=== PATIENT | male | born 1990 | race Caucasian/White ===

== ENCOUNTER 2019-08-13 15:03 | Emergency (ER) | payer SELFPAY ==
[2019-08-13] MEDS: Acetaminophen/HYDROcodone 325-10 MG Tab PO ONE (15:15)
[2019-08-13] MEDS: Ondansetron 4 MG Tab.DIS PO ONE (15:15)
--- NOTE | 2019-08-13 17:40 | EDM.PDOC ---
ED HPI GENERAL MEDICAL PROBLEM - General Chief Complaint: Back Pain or Injury Time Seen by Provider: 08/13/19 15:24 Source of Information: Reports: Patient History Limitations: Reports: No Limitations - History of Present Illness INITIAL COMMENTS - FREE TEXT/NARRATIVE: This is a 28yo M seen in the clinic for neck pain. He was found to have unstable C6-7 fractures and needs to be transferred to [facility]. Onset: Sudden Onset Date: 08/12/19 Onset Time: 20:00 Duration: Constant Location: Reports: Neck Quality: Reports: Ache Severity: Severe Improves with: Reports: None Worsens with: Reports: Movement (unable to move much - counseled not to move.) Associated Symptoms: Reports: Other (tingling and numbness of distal right index finger) Neck Pain Score (Numeric/FACES): 8 - Related Data Allergies Allergy/AdvReac Type Severity Reaction Status Date / Time No Known Allergies Allergy Verified 08/13/19 15:30 Home Meds: Home Meds NK [No Known Home Meds] 08/13/19 [History] ED ROS GENERAL - Review of Systems Review Of Systems: ROS reveals no pertinent complaints other than HPI. 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 As Tested, Oriented x 3 Course - Vital Signs Last Recorded V/S: Last Vital Signs Temp 37.2 C 08/13/19 15:24 Pulse 97 08/13/19 15:24 Resp 20 08/13/19 15:24 BP 153/100 H 08/13/19 15:24 Pulse Ox 100 08/13/19 15:24 - Orders/Labs/Meds Meds: Medications Discontinued Medications Generic Name Dose Route Start Last Admin Trade Name Freq PRN Reason Stop Dose Admin Hydrocodone Bitart/Acetaminophen 1 tab 08/13/19 15:15 08/13/19 15:15 [place] 325-10 Mg PO 08/13/19 15:16 1 tab ONETIME ONE Administration Ondansetron HCl 4 mg 08/13/19 16:15 08/13/19 15:15 Zofran Odt PO 08/13/19 16:16 4 mg ONETIME ONE Administration Departure - Departure Time of Disposition: 16:30 Disposition: DC/Tfer to Acute Hospital 02 Condition: Serious, Critical Clinical Impression: Closed C6 fracture Qualifiers: Encounter type: initial encounter Fracture morphology: unspecified fracture morphology Fracture alignment: nondisplaced Qualified Code(s): S12.501A - Unspecified nondisplaced fracture of sixth cervical vertebra, initial encounter for closed fracture Closed C7 fracture Qualifiers: Encounter type: initial encounter Fracture morphology: unspecified fracture morphology Fracture alignment: displaced Qualified Code(s): S12.600A - Unspecified displaced fracture of seventh cervical vertebra, initial encounter for closed fracture - Discharge Information Referrals: PCP,None [Primary Care Provider] - Forms: ED Department Discharge - Problem List & Annotations (1) Closed C6 fracture SNOMED Code(s): 841728619 Code(s): S12.500A - UNSP DISP FX OF SIXTH CERVICAL VERTEBRA, INIT FOR CLOS FX Status: Acute Priority: High Qualifiers: Encounter type: initial encounter Fracture morphology: unspecified fracture morphology Fracture alignment: nondisplaced Qualified Code(s): S12.501A - Unspecified nondisplaced fracture of sixth cervical vertebra, initial encounter for closed fracture (2) Closed C7 fracture SNOMED Code(s): 371803968 Code(s): S12.600A - UNSP DISP FX OF SEVENTH CERVICAL VERTEBRA, INIT FOR CLOS FX Status: Acute Priority: High Qualifiers: Encounter type: initial encounter Fracture morphology: unspecified fracture morphology Fracture alignment: displaced Qualified Code(s): S12.600A - Unspecified displaced fracture of seventh cervical vertebra, initial encounter for closed fracture - Problem List Review Problem List Initiated/Reviewed/Updated: Yes - Assessment/Plan Plan: Patient counseled on injuries and the need to f/u with Neurosurgery. Patient to be transferred to [facility] as [facility] unable to care for this patient per consult. Patient transferred by BLS in firm neck collar. Counseled on immobilization at all times and severity of fractures. Patient understands risks. Patient given hydrocodone for pain and zofran for nausea. Patient transferred in Neurovascular stable condition and ambulatory. Mild tingling and numbness of right index finger.
== END 2019-08-13 16:05 ==
LOC: LB.ED 15:03
DX: S12.501A Unspecified nondisplaced fracture of sixth cervical vertebra, initial encounter for closed fracture (principal); S12.600A Unspecified displaced fracture of seventh cervical vertebra, initial encounter for closed fracture; V20.4XXA Motorcycle driver injured in collision with pedestrian or animal in traffic accident, initial encounter; Y92.410 Unspecified street and highway as the place of occurrence of the external cause
CPT/HCPCS: 99284; A0425; A0429; A9270-GY

== ENCOUNTER 2020-07-24 08:56 | Emergency (ER) | payer MEDICAID ==
[2020-07-24] MEDS ORDERED: Morphine 10 MG/ML Syringe IM ONE (09:22)
[2020-07-24] MEDS: Morphine 4 MG/ML VIAL ONE ×2 (09:30)
--- NOTE | 2020-07-24 10:57 | EDM.PDOC ---
ED HPI GENERAL MEDICAL PROBLEM - General Chief Complaint: Lower Extremity Injury/Pain Stated Complaint: POSSIBLE FRACTURE LEFT LEG Time Seen by Provider: 07/24/20 09:15 Source of Information: Reports: Patient History Limitations: Reports: No Limitations - History of Present Illness INITIAL COMMENTS - FREE TEXT/NARRATIVE: Patient is a 29 y/o male who presents for left lateral hartman pain after falling 9 feet yesterday off of his garage. He states he slipped off of his ladder onto his left side. Patient states he hit his head and had a nose bleed afterwards, but denies any loss of consciousness. No headache, no vision changes, no dizziness, no numbness/tingling. Patient is unable to ambulate or bear weight on left lower extremity without pain. Left Lower Leg Pain Score (Numeric/FACES): 9 - Related Data Allergies Allergy/AdvReac Type Severity Reaction Status Date / Time No Known Allergies Allergy Verified 07/24/20 09:03 Home Meds: Home Meds NK [No Known Home Meds] 08/13/19 [History] Past Medical History - Past Surgical History Male Surgical History: Reports: None Review of Systems - Review of Systems Review Of Systems: See Below Constitutional: Reports: No Symptoms Eyes: Reports: No Symptoms Ears: Reports: No Symptoms Nose: Reports: No Symptoms Mouth/Throat: Reports: No Symptoms Respiratory: Reports: No Symptoms Cardiovascular: Reports: No Symptoms GI/Abdominal: Reports: No Symptoms Genitourinary: Reports: No Symptoms Musculoskeletal: Reports: Leg Pain Skin: Reports: No Symptoms Neurological: Reports: No Symptoms ED EXAM, GENERAL - Physical Exam Exam: See Below Exam Limited By: No Limitations General Appearance: Alert, No Apparent Distress Ears: Normal External Exam, Normal Canal, Normal TMs Nose: Normal Inspection, Normal Mucosa, No Blood Head: Atraumatic, Normocephalic Neck: Normal Inspection, Supple, Non-Tender, Full Range of Motion Respiratory/Chest: No Respiratory Distress Cardiovascular: Normal Peripheral Pulses, No Edema Extremities: Normal Inspection, Normal Range of Motion, No Pedal Edema, Normal Capillary Refill, Leg Pain, Other (left lateral hartman tenderness; no bruising; no swelling; no deformity) Neurological: Alert, Oriented, CN II-XII Intact, Normal Cognition, No Motor/Sensory Deficits Skin Exam: Warm, Dry, Intact, Normal Color, No Rash Course - Vital Signs Text/Narrative:: Patient received morphine 4 mg IM and imaging. All imaging unremarkable except hair-line fracture to left mid fibula. Boot and crutches given to patient. toradol 60 mg IM and prescription for percocet give. Last Recorded V/S: Last Vital Signs Temp 36.5 C 07/24/20 09:55 Pulse 77 07/24/20 09:55 Resp 20 07/24/20 09:55 BP 162/86 H 07/24/20 09:55 Pulse Ox 99 07/24/20 09:55 - Orders/Labs/Meds Orders: Active Orders 24 hr Category Date Time Status Cervical Spine wo Cont [CT] Stat Exams 07/24/20 09:34 Taken Head wo Cont [CT] Stat Exams 07/24/20 09:33 Ordered Pelvis 1V or 2V [CR] Stat Exams 07/24/20 09:34 Ordered Tibia Fibula Lt [CR] Stat Exams 07/24/20 09:35 Taken Medication Orders Ketorolac Tromethamine (Toradol) 60 mg IM ONETIME ONE Stop: 07/24/20 11:21 Meds: Medications Generic Name Dose Route Start Last Admin Trade Name Freq PRN Reason Stop Dose Admin Ketorolac Tromethamine 60 mg 07/24/20 11:20 Toradol IM 07/24/20 11:21 ONETIME ONE Discontinued Medications Generic Name Dose Route Start Last Admin Trade Name Freq PRN Reason Stop Dose Admin Morphine Sulfate 4 mg 07/24/20 09:22 07/24/20 09:32 Morphine IM 07/24/20 09:23 Not Given ONETIME ONE Morphine Sulfate Confirm 07/24/20 09:34 07/24/20 09:30 Morphine Administered 07/24/20 09:35 4 mg Dose Administration 4 mg .ROUTE .STK-MED ONE Departure - Departure Time of Disposition: 11:24 Disposition: Home, Self-Care 01 Condition: Good Clinical Impression: Fracture, fibula closed, shaft Qualifiers: Encounter type: initial encounter Fracture morphology: transverse Fracture alignment: nondisplaced Laterality: left Qualified Code(s): S82.425A - Nondisplaced transverse fracture of shaft of left fibula, initial encounter for closed fracture - Discharge Information *PRESCRIPTION DRUG MONITORING PROGRAM REVIEWED*: No *COPY OF PRESCRIPTION DRUG MONITORING REPORT IN PATIENT DEYANIRA: No Instructions: Nondisplaced Fibular Ankle Fracture Treated With Immobilization, Adult Referrals: PCP,None [Primary Care Provider] - Forms: ED Department Discharge Sepsis Event Note (ED) - Evaluation Sepsis Screening Result: No Definite Risk - Focused Exam Vital Signs: Vital Signs Temp Pulse Resp BP Pulse Ox 07/24/20 09:55 36.5 C 77 20 162/86 H 99 07/24/20 09:10 36.5 C 77 18 162/86 H 100 - My Orders Last 24 Hours: My Active Orders 07/24/20 09:33 Head wo Cont [CT] Stat 07/24/20 09:34 Cervical Spine wo Cont [CT] Stat Pelvis 1V or 2V [CR] Stat 07/24/20 09:35 Tibia Fibula Lt [CR] Stat - Assessment/Plan Last 24 Hours: My Active Orders 07/24/20 09:33 Head wo Cont [CT] Stat 07/24/20 09:34 Cervical Spine wo Cont [CT] Stat Pelvis 1V or 2V [CR] Stat 07/24/20 09:35 Tibia Fibula Lt [CR] Stat
[2020-07-24] MEDS ORDERED: Acetaminophen/oxyCODONE 325-5 MG Tab ONE (11:15)
[2020-07-24] MEDS ORDERED: Ketorolac 60 MG/2 ML SDV IM ONE ×2 (11:20→11:27)
[2020-07-24] MEDS ORDERED: Ketorolac 60 MG/2 ML SDV ONE (11:37)
--- NOTE | 2020-07-24 15:12 | CT ---
DATE OF SERVICE: 07/24/2020 CLINICAL DATA: Fall Cervical Spine CT: Comparison is made to a prior exam dated 22 January 2020. The patient is status post internal fixation of C4, C5, C6, C7, T1, and T2 with posterior metal rods and screws. No acute fracture or dislocation. There is slight retrolisthesis of C6 on C7, unchanged. There is also slight anterolisthesis of C7 on T1, unchanged. There is an old fracture through the lamina of C6 on the right. There are also old fractures through the lateral masses of C6 and C7 on the right. No acute fracture or dislocation. The visualized lung apices are clear. The soft tissues are unremarkable. Impression: No acute abnormalities. MTDD
--- NOTE | 2020-07-24 15:14 | CR ---
DATE OF SERVICE: 07/24/2020 CLINICAL DATA: Fall Pelvis and Both Hips: No acute fracture or dislocation. There are small sclerotic densities in the femoral head consistent with bone islands. No other lytic or blastic bone lesions. [facility]
--- NOTE | 2020-07-24 16:01 | CR ---
DATE OF SERVICE: CLINICAL DATA: Fall Left lower leg: No acute fracture or dislocation. There is a small sclerotic density in the proximal tibia consistent with a bone island. No other lytic or blastic bone lesions. [facility]
--- NOTE | 2020-07-24 16:03 | CT ---
DATE OF SERVICE: 07/24/2020 CLINICAL DATA: Fall Unenhanced brain CT: Multi slice axial acquisition without IV contrast was performed. No priors. No masses or mass effect. No intracranial hemorrhage. No evidence of acute or subacute infarct. No fractures. Impression: No acute intracranial abnormalities. [facility]
== END 2020-07-24 11:45 | disposition home or self-care (01) ==
LOC: LB.ED 08:56
DX: S82.425A Nondisplaced transverse fracture of shaft of left fibula, initial encounter for closed fracture (principal); W17.89XA Other fall from one level to another, initial encounter
CPT/HCPCS: 70450; 72125; 72170; 73590; 96372; 99284; A9270; J1885; J2270; 99283

== ENCOUNTER 2021-03-12 18:45 | Emergency (ER) | payer MEDICAID ==
--- NOTE | 2021-03-12 19:15 | EDM.PDOCBH ---
ED HPI GENERAL MEDICAL PROBLEM - General Chief Complaint: Behavioral/Psych Stated Complaint: SUICIDAL IDEATION Time Seen by Provider: 03/12/21 18:55 Source of Information: Reports: Patient History Limitations: Reports: No Limitations - History of Present Illness INITIAL COMMENTS - FREE TEXT/NARRATIVE: patient presented to the ER due to worsening depression and feeling hopeless. was diagnosed with depression 2 months ago, and stared Cymbalta and xanax. Reports some family situation stresses, he has 2 kids from his ex girlfriend and his relationship with the kids has been tough. He admits that he has been taking his medications and doing well until just 3 days ago, when his kids came to visit him, but they said something that upset him. Since then, he has been feeling down, hopeless, not sleeping well and tearful. He sees a psychiatrist - last visit was 4-5 days ago, but patient didn't bring up the topic to him. Denies any suicidal plan but reports feeling very down and needing some help. He called crisis line earlier who directed him to come to the ER. Denies any illicit drugs abuse. - Related Data Allergies Allergy/AdvReac Type Severity Reaction Status Date / Time No Known Allergies Allergy Verified 03/12/21 19:00 Home Meds: Home Meds ALPRAZolam [Alprazolam] 1 mg PO BID 03/12/21 [History] DULoxetine [Cymbalta] 60 mg PO DAILY 03/12/21 [History] Past Medical History HEENT History: Reports: None Neurological History: Reports: Other (See Below) (cervical spine injurt 2 years ago, resulting in b/l UEs tingling) Psychiatric History: Reports: Anxiety, Depression - Past Surgical History Male Surgical History: Reports: None Social & Family History - Caffeine Use Caffeine Use: Reports: Coffee ED ROS GENERAL - Review of Systems Review Of Systems: See Below Constitutional: Reports: No Symptoms HEENT: Reports: No Symptoms Respiratory: Reports: No Symptoms Cardiovascular: Reports: No Symptoms GI/Abdominal: Reports: No Symptoms Musculoskeletal: Reports: Neck Pain Skin: Reports: No Symptoms Neurological: Reports: Tingling Psychiatric: Reports: Anxiety, Depression ED EXAM, BEHAVIORAL HEALTH - Physical Exam Exam: See Below Exam Limited By: No Limitations General Appearance: Alert, WD/WN, No Apparent Distress Eye Exam: Bilateral Eye: EOMI Neck: Normal Inspection Respiratory/Chest: No Respiratory Distress, Lungs Clear Cardiovascular: Normal Peripheral Pulses, Regular Rate, Rhythm GI/Abdominal: Normal Bowel Sounds, Soft Extremities: Normal Inspection, Normal Range of Motion Neurological: Alert, Normal Mood/Affect, Normal Cognition, Normal Gait Psychiatric: Depressed Mood, Tearful. No: Homicidal Thoughts COURSE, BEHAVIORAL HEALTH COMP - Course Vital Signs: Last Vital Signs Temp 36.8 C 03/12/21 18:45 Pulse 120 H 03/12/21 18:45 Resp 16 03/12/21 18:45 BP 135/85 03/12/21 18:45 Pulse Ox 100 03/12/21 18:45 Orders, Labs, Meds: Active Orders 24 hr Category Date Time Status ACETAMINOPHEN [CHEM] Stat Lab 03/12/21 19:40 Ordered BASIC METABOLIC PANEL,BMP [CHEM] Stat Lab 03/12/21 19:40 Ordered CBC W/O DIFF,HEMOGRAM [HEME] Stat Lab 03/12/21 19:40 Ordered SALICYLATE [CHEM] Stat Lab 03/12/21 19:40 Ordered TSH ULTRASENSITIVE [CHEM] Stat Lab 03/12/21 19:40 Ordered Medications Discontinued Medications Generic Name Dose Route Start Last Admin Trade Name Freq PRN Reason Stop Dose Admin Lorazepam 1 mg 03/12/21 19:17 Lorazepam 1 Mg Tab PO 03/12/21 19:18 ONETIME ONE Re-Assessment/Re-Exam: patient was assessed by myself and the mobile crisis team. Discussed with the patient the plan and options of treatment between admission to a mental health facility or adjusting out therapy over the weekend and social support. Patient is cooperative with the staff and volunteering to be treated. He has a strong family and emotional support, plus friends who will be checking on him. He was also provided with numbers to call in case he needed to speak to anyone Departure - Departure Time of Disposition: 20:24 Disposition: Home, Self-Care 01 Condition: Good Clinical Impression: Depression Qualifiers: Depression Type: major depressive disorder Major depression recurrence: single episode Active/Remission status: currently active Major depression episode severity: moderate Qualified Code(s): F32.1 - Major depressive disorder, single episode, moderate - Discharge Information *PRESCRIPTION DRUG MONITORING PROGRAM REVIEWED*: Not Applicable *COPY OF PRESCRIPTION DRUG MONITORING REPORT IN PATIENT DEYANIRA: Not Applicable Instructions: Alprazolam tablets, Duloxetine delayed-release capsules, Suicidal Feelings: How to Help Yourself Referrals: PCP,None [Primary Care Provider] - Forms: ED Department Discharge Additional Instructions: Increase Cymbalta dose to 90mg once daily. Take the Cymbalta in the AM everyday and continue with the Xanax as prescribed. Also followup in the clinic next week with a provider here. If you have ANY issues or concerns or just need to talk to someone PLEASE call any of the below numbers, we are all here to help you. Do not hesistate to call if you are struggling and know that it is ok to struggle, we are here to help you through! Crisis Line [phone] Sepsis Event Note (ED) - Evaluation Sepsis Screening Result: No Definite Risk - Focused Exam Vital Signs: Vital Signs Temp Pulse Resp BP Pulse Ox 03/12/21 18:45 36.8 C 120 H 16 135/85 100 - Problem List & Annotations (1) Depression SNOMED Code(s): 99509478 Code(s): F32.9 - MAJOR DEPRESSIVE DISORDER, SINGLE EPISODE, UNSPECIFIED Status: Acute Priority: Medium Current Visit: Yes Qualifiers: Depression Type: major depressive disorder Active/Remission status: currently active Major depression episode severity: moderate - Problem List Review Problem List Initiated/Reviewed/Updated: Yes - My Orders Last 24 Hours: My Active Orders 03/12/21 19:40 ACETAMINOPHEN [CHEM] Stat BASIC METABOLIC PANEL,BMP [CHEM] Stat CBC W/O DIFF,HEMOGRAM [HEME] Stat SALICYLATE [CHEM] Stat TSH ULTRASENSITIVE [CHEM] Stat - Assessment/Plan Last 24 Hours: My Active Orders 03/12/21 19:40 ACETAMINOPHEN [CHEM] Stat BASIC METABOLIC PANEL,BMP [CHEM] Stat CBC W/O DIFF,HEMOGRAM [HEME] Stat SALICYLATE [CHEM] Stat TSH ULTRASENSITIVE [CHEM] Stat Plan: - mobile mental health eval while in the ER - out patient therapy - increasing dose of Cymbalta from 60mg to 90mg OD daily - patient feels much better after opening up and sharing his story.
[2021-03-12] MEDS ORDERED: LORazepam 1 MG Tab PO ONE (19:17)
[2021-03-12] MEDS ORDERED: DULoxetine 30 MG Cap ONE (20:00)
[2021-03-12] MEDS ORDERED: DULoxetine 60 MG Cap ONE (20:00)
== END 2021-03-12 20:44 | disposition home or self-care (01) ==
LOC: LB.ED 18:45 → EEVIPCON 18:45 → LB.ED 20:44
DX: F32.1 Major depressive disorder, single episode, moderate (principal)
CPT/HCPCS: 99283; A9270-GY

== ENCOUNTER 2022-01-05 11:58 | Emergency (ER) | payer MEDICAID ==
[2022-01-05] MEDS: Orphenadrine 60 MG/2 ML Inj IM ONE (12:20)
[2022-01-05] MEDS ORDERED: Ketorolac 30 MG/ML SDV ONE (12:28)
[2022-01-05] MEDS ORDERED: Orphenadrine 60 MG/2 ML Inj ONE (12:28)
[2022-01-05] MEDS: Ketorolac 30 MG/ML SDV IM ONE ×2 (12:47→12:48)
== END 2022-01-05 13:35 | disposition home or self-care (01) ==
LOC: LB.ED 11:58
DX: R51.9 Headache, unspecified (principal); M54.2 Cervicalgia; Z79.899 Other long term (current) drug therapy
CPT/HCPCS: 70450; 96372; 99283; J1885; J2360

== ENCOUNTER 2022-04-14 21:27 | Emergency (ER) | payer MEDICAID, OTHER ==
[2022-04-14 22:04] LABS: ESTIMATED GFR 95 mL/min (>60)
[2022-04-14] MEDS ORDERED: LORazepam 2 MG/ML SDV IVPUSH ONE (22:29)
[2022-04-14] MEDS ORDERED: Haloperidol Lactate 5 MG/ML SDV IVPUSH ONE (22:30)
[2022-04-14] MEDS ORDERED: diphenhydrAMINE 50 MG/ML SDV IVPUSH ONE (22:30)
[2022-04-14] MEDS ORDERED: diphenhydrAMINE 50 MG/ML SDV ONE (22:40)
[2022-04-14] MEDS ORDERED: Haloperidol Lactate 5 MG/ML SDV ONE ×3 (22:40→22:52)
[2022-04-14] MEDS ORDERED: LORazepam 2 MG/ML SDV ONE (22:40)
[2022-04-14] MEDS ORDERED: Ketamine 200 MG/20 ML MDV ONE (22:56)
[2022-04-14] MEDS ORDERED: Ketamine 200 MG/20 ML MDV IVPUSH ONE (23:26)
== END 2022-04-15 00:35 ==
LOC: MERGE 21:27 → LB.ED 21:27
DX: S00.90XA Unspecified superficial injury of unspecified part of head, initial encounter (principal); V86.95XA Unspecified occupant of 3- or 4- wheeled all-terrain vehicle (ATV) injured in nontraffic accident, initial encounter
CPT/HCPCS: 36415; 70450; 71045; 71250; 72125; 74176; 80053; 80307; 83605; 83690; 85025; 86850; 86900; 86901; 96374; 96375; 99285; 99285-25; A0425; A0429; J1200; J1630; J2060

== ENCOUNTER 2024-07-02 08:15 | Emergency (ER) | payer MEDICARE, MEDICAID ==
[2024-07-02] MEDS: Tetracaine HCl/PF 0.5% 4 ML Bottle EYELF ONE (08:42)
== END 2024-07-02 08:52 | disposition home or self-care (01) ==
LOC: LB.ED 08:15
DX: H10.9 Unspecified conjunctivitis (principal); Z79.899 Other long term (current) drug therapy
CPT/HCPCS: 99283